=== PATIENT | male | born 1980 | race Caucasian/White ===

== ENCOUNTER 2019-04-26 05:20 | Emergency (ER) | payer SELFPAY ==
[~2019-04-26] VITALS: Ht 188 cm; Wt 77.1 kg
[2019-04-26] MEDS ORDERED: IBUPROFEN 600 MG TABLET PO ONE (06:00)
[2019-04-26] MEDS ORDERED: IBUPROFEN 600 MG TABLET ONE (06:01)
--- NOTE | 2019-04-26 06:04 | NUR ---
Patient discharged to home in stable conditon. Written and verbal after care instructions given. Patient verbalizes understanding of instructions. WALKED OUT OF ER WITH NO DISTRESS NOTED.
== END 2019-04-26 06:06 | disposition home or self-care (01) ==
LOC: ER 05:23
DX: M25.462 Effusion, left knee (principal); F12.10 Cannabis abuse, uncomplicated
CPT/HCPCS: A4663